=== PATIENT | male | born 1955 | race African-American/Black ===

== ENCOUNTER 2016-04-11 05:26 | Day surgery (SDC) | payer OTHER ==
[~2016-04-11] VITALS: Ht 172.7 cm; Wt 93.4 kg
[~2016-04-11 05:26] MED LIST: EXFORGE 10/11 TABLET PO; IRON325 M1 PO; LEVOTHYROXINE150 MCG PO; LO-DOSE ASPIRIN81 M2 PO; VITAMIN D5000 UNI1 PO
[2016-04-11 06:09] VITALS: BP 138/80
[2016-04-11] MEDS ORDERED: PERCOCET 5/31 TABLET PO (09:16)
[2016-04-11 13:05] VITALS: BP 123/73
[2016-04-11 13:28] VITALS: BP 112/69
[2016-04-11 16:20] VITALS: BP 140/85
== END 2016-04-11 16:47 | disposition home or self-care (01) ==
LOC: SDC 05:26
DX: K64.8 Other hemorrhoids (principal); K64.4 Residual hemorrhoidal skin tags; K91.840 Postprocedural hemorrhage of a digestive system organ or structure following a digestive system procedure; T81.31XA Disruption of external operation (surgical) wound, not elsewhere classified, initial encounter; R05 Cough; Z79.82 Long term (current) use of aspirin
CPT/HCPCS: 88304; J0330; J1100; J1170; J1885; J2250; J2405; J3010

== ENCOUNTER → 2017-02-16 | Outpatient (CLI) | payer OTHER ==
[~2017-02-16] MED LIST changes: +PERCOCET 5/31 TABLET PO
== END | disposition home or self-care (01) ==
LOC: RAD 02-12 09:00
DX: R10.814 Left lower quadrant abdominal tenderness (principal); D50.8 Other iron deficiency anemias; R14.0 Abdominal distension (gaseous); D64.9 Anemia, unspecified; K21.9 Gastro-esophageal reflux disease without esophagitis; K92.1 Melena
CPT/HCPCS: 74250

== ENCOUNTER 2017-07-06 06:32 | Emergency (ER) | payer OTHER ==
[~2017-07-06] VITALS: Ht 172.7 cm; Wt 101.8 kg
[2017-07-06 07:28] VITALS: BP 168/97
== END 2017-07-06 07:29 | disposition home or self-care (01) ==
LOC: EME → EDBD 06:32 → EME 07:29
DX: S40.012A Contusion of left shoulder, initial encounter (principal); V49.40XA Driver injured in collision with unspecified motor vehicles in traffic accident, initial encounter; Y92.410 Unspecified street and highway as the place of occurrence of the external cause; Z79.82 Long term (current) use of aspirin
CPT/HCPCS: 99281; 99283